=== PATIENT | female | born 1970 | race Hispanic/Latino ===

== ENCOUNTER 2018-07-07 07:51 | Inpatient (IN) | payer MEDICARE, BC ==
[2018-07-07 08:29] VITALS: BMI 21.9
--- NOTE | 2018-07-07 08:46 | ED PDOC ---
Arrival/HPI - General Chief Complaint: GI Problem Time Seen by Provider: 07/07/18 07:56 Historian: Patient - History of Present Illness Narrative History of Present Illness (Text): 07/07/18 08:43 47 year old female, whose past medical history includes rectal carcinoma with multiple surgeries including ileostomy and colostomy, sent to the emergency department by Dr. Hendrix complaining of persistent diarrhea for the past severa l days. Patient had a sigmoid dilation 1.5 weeks ago at another institution. Patient states 3 days ago she went to her oncologist for dehydration and received IV Fluids and one dose of Rocephin for UTI. Patient denies any documented temperature, chills, chest pain, shortness of breath, nausea, vomiting, back pain, neck pain, headache, dizziness, or any other complaints. Oncologist: Dr. Hendrix Time/Duration: Other (several days) Symptom Onset: Gradual Symptom Course: Unchanged Activities at Onset: Light Context: Home Past Medical History - Provider Review Nursing Documentation Reviewed: Yes - Infectious Disease Hx of Infectious Diseases: None - Cardiac Hx Cardiac Disorders: No Hx Pacemaker: No - Pulmonary Hx Respiratory Disorders: No - Neurological Hx Neurological Disorder: No Hx Paralysis: No - HEENT Hx HEENT Disorder: No - Renal Hx Renal Disorder: No - Endocrine/Metabolic Hx Endocrine Disorders: No - Hematological/Oncological Hx Blood Disorders: Yes Hx Blood Transfusions: Yes (06/04) - Integumentary Hx Dermatological Disorder: No Other/Comment: surgical scars and steri strips to suprapubic area, skin is reddened post colon sx - Musculoskeletal/Rheumatological Hx Musculoskeletal Disorders: No - Gastrointestinal Hx Gastrointestinal Disorders: Yes Hx Colostomy: Yes (ileostomy) Hx Ileostomy: Yes Other/Comment: colorectoal ca - Genitourinary/Gynecological Hx Genitourinary Disorders: No - Psychiatric Hx Psychophysiologic Disorder: Yes Hx Anxiety: Yes Hx Emotional Abuse: No Hx Physical Abuse: No Hx Substance Use: No - Surgical History Other/Comment: dx with colon ca had colon sx with ileostomy, reversal of ileostomy 06/2013, colostomy, 09/2013 colostomy loop not working properly, had 2 part sx 05/20/15 and 05/25/15 at [facility] to repair colostomy and rectum - Anesthesia Hx Anesthesia Reactions: No Hx Malignant Hyperthermia: No - Suicidal Assessment Feels Threatened In Home Enviroment: No Family/Social History - Physician Review Nursing Documentation Reviewed: Yes Family/Social History: No Known Family HX Smoking Status: Never Smoked Hx Alcohol Use: Yes (SOCIAL) Hx Substance Use: No Allergies/Home Meds Allergies/Adverse Reactions: Allergies No Known Allergies Allergy (Verified 07/07/18 08:20) Home Medications: Home Meds Medication Instructions Recorded Confirmed Loperamide HCl 2 mg PO PRN PRN 11/25/15 11/26/15 Pantoprazole [Protonix EC Tab] 40 mg PO QAM 11/25/15 11/26/15 levoFLOXacin [Levaquin] 500 mg PO DAILY 11/25/15 11/26/15 Review of Systems - Physician Review All systems were reviewed & negative as marked: Yes - Review of Systems Constitutional: absent: Fevers, Other (Chills) Respiratory: absent: SOB Cardiovascular: absent: Other Gastrointestinal: Diarrhea. absent: Nausea, Vomiting Musculoskeletal: absent: Back Pain, Neck Pain Neurological: absent: Headache, Dizziness Physical Exam Vital Signs Reviewed: Yes Vital Signs Temp Pulse Resp BP Pulse Ox 07/07/18 08:39 98.2 F 78 16 118/67 100 Temperature: Afebrile Blood Pressure: Normal Pulse: Regular Respiratory Rate: Normal Appearance: Positive for: Well-Appearing, Non-Toxic, Comfortable Pain Distress: None Mental Status: Positive for: Alert and Oriented X 3 - Systems Exam Head: Present: Atraumatic, Normocephalic Pupils: Present: PERRL Extroacular Muscles: Present: EOMI Conjunctiva: Present: Normal Mouth: Present: Dry Neck: Present: Normal Range of Motion Respiratory/Chest: Present: Clear to Auscultation, Good Air Exchange. No: Respiratory Distress, Accessory Muscle Use Cardiovascular: Present: Regular Rate and Rhythm, Normal S1, S2. No: Murmurs Abdomen: Present: Scars (Multiple well healed surgical scars), Other (Hyperactive bowel sounds). No: Tenderness, Distention, Peritoneal Signs Back: Present: Normal Inspection Upper Extremity: Present: Normal Inspection. No: Cyanosis, Edema Lower Extremity: Present: Normal Inspection. No: Edema Neurological: Present: GCS=15, CN II-XII Intact, Speech Normal Skin: Present: Warm, Dry, Normal Color. No: Rashes Psychiatric: Present: Alert, Oriented x 3, Normal Insight, Normal Concentration Medical Decision Making ED Course and Treatment: 07/07/18 08:44 Impression: 47 year old female presents complaining of persistent diarrhea for the past several days. Patient had a sigmoid dilation 1.5 weeks ago. Plan: -- CT Abd & Pelvis PO Contrast -- labs -- IV Fluids -- Blood Culture, Urine Culture -- POC Urine Test -- Urinalysis w/ micro -- Reassess and disposition Prior Visits: Notes and results from previous visits were reviewed. Progress Notes: 07/07/18 08:[address] Hendrix who is aware and recommends CT Abd & Pelvis PO Contrast to be done. Will call back when results come back for further plan. PROCEDURE: CT Abdomen and Pelvis without IV contrast. Dictator : Summer Ward MD Report Date : 07/07/2018 12:23:43 IMPRESSION: Indeterminate large prominent presacral soft tissue may be post treatment etiology however recurrence or residual tumor is not excluded. Collapse bowel loop has previously been seen in this region and small amount of high density as well as foci of air may in fact be intraluminal. Abscess is not excluded. Correlate clinically. Mild hydronephrosis/hydroureter bilaterally without obstructing calculus identified. Small hypodensity re-identified within the right hepatic lobe adjacent to the falciform ligament cyst; possibly focal fatty infiltration. Moderate diffuse constipation. 07/07/18 13:[address] Hendrix who is aware and agrees with the plan. Accepts patient into her service and Dr. Roth service. Request Dr. Pederson for GI consult and Roberto Wallace for Infectious Disease Consult. - Lab Interpretations I have reviewed the lab results: Yes - Scribe Statement The provider has reviewed the documentation as recorded by the Marilee Parra Provider Scribe Attestation: All medical record entries made by the Scribe were at my direction and personally dictated by me. I have reviewed the chart and agree that the record accurately reflects my personal performance of the history, physical exam, medical decision making, and the department course for this patient. I have also personally directed, reviewed, and agree with the discharge instructions and disposition. Disposition/Present on Arrival - Present on Arrival Any Indicators Present on Arrival: No History of DVT/PE: No History of Uncontrolled Diabetes: No Urinary Catheter: No History of Decub. Ulcer: No History Surgical Site Infection Following: None - Disposition Have Diagnosis and Disposition been Completed?: Yes Diagnosis: Diarrhea, Dehydration Disposition: HOSPITALIZED Disposition Time: 12:15 Condition: STABLE
[2018-07-07] MEDS ORDERED: Sodium Chloride 0.9% 1,000 ML IV STA (09:06)
[2018-07-07] MEDS ORDERED: Iohexol 240 (50 ml) ONE (09:22)
[2018-07-07 09:39] LABS: URINE APPEARANCE CLEAR (CLEAR); URINE BILIRUBIN NEGATIVE (NEGATIVE); URINE BLOOD LARGE (NEGATIVE); URINE COLOR YELLOW (YELLOW); URINE GLUCOSE (UA) NEGATIVE (NEGATIVE); URINE LEUKOCYTE ESTERASE LARGE Leu/uL (NEGATIVE); URINE PROTEIN NEGATIVE mg/dL (<30 mg/dL); URINE UROBILINOGEN 0.2 E.U./dL (<1 E.U./dL)
[2018-07-07 10:00] LABS: URINE RBC 0 - 2 /hpf (0-2)
[2018-07-07 10:01] LABS: URINE BACTERIA NEG (NEG)
[2018-07-07 10:03] LABS: BASO # 0.02 K/mm3 (0.0-2.0); BASO % 0.3 % (0.0-3.0); EOS # 0.1 (0.0-0.7); GRAN # 5.48 (1.4-6.5); GRAN % 75.1 % (50.0-68.0); HEMOGLOBIN 12.3 g/dL (12.0-16.0); LYMPH # 1.1 (1.2-3.4); LYMPH % 15.6 % (22.0-35.0); MEAN CELL VOLUME 91.7 fl (80.0-105.0); MEAN CORPUSCULAR HEMOGLOBIN 30.1 pg (25.0-35.0); MEAN CORPUSCULAR HGB CONC 32.8 g/dl (31.0-37.0); MEAN PLATELET VOLUME 9.3 fl (7.0-11.0); MONO # 0.6 (0.1-0.6); RBC 4.09 10^6/uL (3.5-6.1); RED CELL DISTRIBUTION WIDTH 13.2 % (11.5-14.5); WHITE BLOOD COUNT 7.3 10^3/uL (4.5-11.0)
[2018-07-07 10:08] LABS: INR 1.06; PARTIAL THROMBOPLASTIN TIME 31.6 Seconds (25.1-36.5); PROTHROMBIN TIME 12.2 SECONDS (9.4-12.5)
[2018-07-07 10:09] LABS: ALB/GLOB RATIO 1.2 (1.1-1.8); ALBUMIN 4.4 g/dL (3.0-4.8); ALT/SGPT 22 U/L (7-56); AMYLASE 68 U/L (35-125); AST/SGOT 22 U/L (14-36); BLOOD UREA NITROGEN 9 mg/dL (7-21); CALCIUM 9.2 mg/dL (8.4-10.5); GFR NON-AFRICAN AMERICAN > 60; LIPASE 65 U/L (23-300)
--- NOTE | 2018-07-07 12:27 | CT ---
PROCEDURE: CT Abdomen and Pelvis without IV contrast. HISTORY: diarrhea h/o multiple sx's. h/o rectal cancer COMPARISON: CT abdomen pelvis with contrast performed 06/18/15 TECHNIQUE: Contiguous axial images of the abdomen and pelvis. Oral contrast was administered. No IV contrast given. Coronal and Sagittal reformats generated and reviewed. Radiation dose: Total exam DLP = 646.4 mGy-cm. This CT exam was performed using one or more of the following dose reduction techniques: Automated exposure control, adjustment of the mA and/or kV according to patient size, and/or use of iterative reconstruction technique. FINDINGS: There is limited evaluation of the solid organs without the administration of IV contrast. LOWER THORAX: No visible consolidation, pleural effusion, or pneumothorax. Visualized portions of the heart appear within normal limits of size. LIVER: Small hypodensity re-identified within the right hepatic lobe adjacent to the falciform ligament. GALLBLADDER AND BILE DUCTS: Unremarkable unenhanced appearance. PANCREAS: Unremarkable unenhanced appearance. SPLEEN: Unremarkable unenhanced appearance. ADRENALS: Unremarkable unenhanced appearance. KIDNEYS AND URETERS: Mild hydronephrosis/hydroureter bilaterally. No obstructing calculi identified. BLADDER: The urinary bladder appears unremarkable. REPRODUCTIVE: Uterus is present. APPENDIX: The appendix appears within normal limits of caliber. No secondary signs of acute appendicitis. BOWEL: The stomach is nondistended. No evidence of bowel obstruction. Indeterminate large prominent presacral soft tissue may be post treatment etiology however recurrence or residual tumor is not excluded. The collapsed bowel loop has previously been seen in this region and small amount of high density in foci of air may in fact be intraluminal. Abscess not excluded. Correlate clinically. Moderate diffuse constipation. LYMPH NODES: No bulky lymphadenopathy identified. VASCULATURE: No aortic aneurysm. BONES: No acute osseous abnormality is detected. OTHER FINDINGS: None. IMPRESSION: Indeterminate large prominent presacral soft tissue may be post treatment etiology however recurrence or residual tumor is not excluded. Collapse bowel loop has previously been seen in this region and small amount of high density as well as foci of air may in fact be intraluminal. Abscess is not excluded. Correlate clinically. Mild hydronephrosis/hydroureter bilaterally without obstructing calculus identified. Small hypodensity re-identified within the right hepatic lobe adjacent to the falciform ligament cyst; possibly focal fatty infiltration. Moderate diffuse constipation.
[2018-07-07] MEDS ORDERED: cefTRIAXone 1 gm 1 GM/100 ML BAG IVPB STA (13:21)
[2018-07-07] MEDS: Dextrose 5%/0.9% NS 1,000 ML IV SCH (17:46)
[2018-07-07] MEDS: POLYETHYLENE GLYCOL 3350 17 GM/Dose PACKET PO SCH ×3 (17:47→23:59)
[2018-07-08] MEDS: POLYETHYLENE GLYCOL 3350 17 GM/Dose PACKET PO SCH ×3 (02:42→08:21)
[2018-07-08] MEDS: Dextrose 5%/0.9% NS 1,000 ML IV SCH (05:48)
--- NOTE | 2018-07-08 06:27 | HP ---
DATE OF EXAM: 07/07/2018 ONCOLOGY ADMISSION HISTORY AND PHYSICAL LOCATION: The patient is in room 371, admitted through the emergency room. HISTORY OF PRESENT ILLNESS: This is a 47-year-old white female with a long history of rectal carcinoma with neoadjuvant chemotherapy and radiation, following which she has had multiple surgeries including ileostomy, loop colostomy, again had reversal of colostomy with resultant residual stricture of the colon in the area of segment of the colon just above the at the level of the sigmoid colon on the left side which is being dilated periodically by Dr. Wayne Meek at [facility]. The patient had one procedure done recently about [id number] weeks ago at an outpatient facility and since then the patient has been symptomatic with one loose stool that is leaking out per rectum and the patient is incontinent. Along with this, the patient has had significant issues with irritation and dysuria and had been treated locally since the visit to [facility]. The patient was seen in local outpatient medical center x2 and had been treated with Cipro for possible urinary tract infection based on urinalysis. The patient was then seen by us in our office last week also with clinical dehydration, abdominal cramps, incontinent of stool, and at that time the patient was noted to be clinically dehydrated and was having low-grade temperature. In view of that, she had urinalysis, urine cultures, procalcitonin, and blood culture. Patient was given IV fluids, given one dose of IV Rocephin and then was told to keep in touch with us and since the patient was seen in the office over the last 24 hours, patient's condition worsened. She is complaining of mild diffuse lower abdominal cramps with constant incontinence with irritation of the vulvovaginal area as well and the patient was having increasing issues with this at home. She was having low-grade temperature without any significant nausea or vomiting and she was advised to go to the emergency room, but she is not improving. Patient had taken Imodium at night along with oxycodone to try to somewhat slow down her leakage of stool, but it was unsuccessful and the patient then decided to come over to the emergency room. She called me on the phone. I advised her to go to the emergency room and then have the ER physician call. In the meantime, I reached out to the surgeon at [facility] as well who agreed that it might to be a prudent thing to admit the patient, get a CAT scan of the abdomen and pelvis with oral contrast to check for any major issues. At the same time, if this thing did not resolve, get an MRI of the abdomen and MRI of the pelvis to look for further details. REVIEW OF SYSTEMS: Patient denies any temperature. She has been feeling chills. No chest pain. The patient is nauseous. Denies any significant vomiting. No back pain with this. No headaches. Patient's appetite has been decreased. Complains of dry mouth as well. PAST MEDICAL HISTORY AND SURGICAL HISTORY: The patient has had multiple surgeries after the neoadjuvant chemotherapy and radiation. She had initially concomitant resection of the tumor with an ileostomy and then the reversal was attempted. The patient had continuous leakage and based on this, the patient went on to have a loop colostomy. Subsequent to loop colostomy, the patient was having significant complaints to the leakage and incontinence of stool and eventually, the patient was seen at [facility], where she had primary anastomosis about [id number]-half years ago with intermittent dilatation of the strictured area of the colon that is being done on a periodic basis with one procedure being done just less than 10 days ago. 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 The patient also is concerned that she is developing fistula and I told her that it is unlikely and we will talk to the doctor and get appropriate imaging prior to her discharge during this admission. FAMILY HISTORY: Mother had colon cancer as well. HOME MEDICATIONS: Include loperamide as needed 2 mg, pantoprazole 40 mg daily, Levaquin 500 mg daily. PHYSICAL EXAMINATION: GENERAL: The patient is awake, alert, and oriented. VITAL SIGNS: T max is 98.2, pulse is 78, respirations 16, blood pressure 118/67, pulse ox is 100% on room air. Patient is afebrile. HEENT: Head is normocephalic, atraumatic. Conjunctivae pale. Sclerae anicteric. Pupils are equally reactive to light and accommodation. Tongue is dry, coated. No oropharyngeal lesions are noted. NECK: Supple. There is no adenopathy. LUNGS: Clear to percussion and auscultation. HEART: Reveals PMI to be in the fifth intercostal space inside the midclavicular line. S1, S2 are normal. No gallop or murmur is heard. ABDOMEN: Soft. Patient has multiple well-healed surgical scars. Abdomen is mildly protuberant, complaining of mid epigastric and periumbilical discomfort along with some suprapubic discomfort as well. No significant rebound is noted at this time. EXTREMITIES: Upper and lower extremities reveals no cyanosis, clubbing, or edema. BACK: Normal. There is no tenderness on percussion of the back, specifically the kidney angle . NEUROLOGIC: Reveals higher functions to be normal. No focal deficits are noted. SKIN: Turgor is decreased. No skin rashes are noted. PSYCHIATRIC: The patient has a normal affect and she is awake, alert, and oriented x3. ASSESSMENT NOTES AND PLAN: This is a 47-year-old female complaining of persistent loose bowel movements with incontinence in the presence of having had a procedure done recently. Patient is concerned about leakage of stool in and around her vaginal introitus raising the issue that the patient could have developed vesicovaginal or rectovaginal fistula which appears unlikely that has to be kept in the differential. Also, the possibility of a pelvic abscess post procedure has to be entertained as well. Plan, I have spoken in detail with Dr. Pederson who reviewed the CAT scan of the abdomen and pelvis with oral contrast done in the emergency room. I spoke to Dr. Meek at [facility] as well. Labs in the office were also reviewed with the patient and Dr. Pederson. Blood cultures that were done in the office have been negative for more than 48 hours. Urine was negative for growth, but urinalysis which showed significant white cells and red cells along with positive esterase suggestive of urinary tract infection. In the emergency room, procalcitonin and blood cultures have been drawn today. We will await for those results as well. A 47-year-old female with history of carcinoma of the rectum, presenting with progressive abdominal complaints, rule out evolving residual urinary tract infection, rule out evolving collection fluid, infection or pus in a patient who has post surgical dilatation with accumulation of presacral abnormalities, one would have to consider underlying infection as well. Plan is to get the patient to have an MRI of the abdomen and MRI of the pelvis with and without contrast. We will also have to check the patient for fistula for which she may need testing done on those lines as well. The CAT scan with oral contrast done today showed the patient has a lot of stool high up in the small intestine. For that reason alone, we are planning to give the patient at this point in time MiraLax 17 g every four hours at least for several doses until she has a good bowel movement. Hopefully, that will have the patient feel better as well. The patient empirically received one dose of Rocephin. Infectious Disease consultation has been obtained and we will then discuss further management from Infectious Disease and Gastroenterology point of view. Plan is as above. IV fluids and D5 normal saline at 100 mL an hour, IV antibiotics. Check for procalcitonin. Check for repeat blood cultures. Get ID on board along with evaluation by GI as well. I spoke to Dr. Meek at [facility] who said depending upon what the findings are on the MRI of the abdomen and pelvis, we might be probably transferring the patient to [facility] for further management if there should be a need for the same. Time spent with this patient is greater than 45 minutes, out of which more than 50% of the time was spent [id number] contact with the patient. Time is also for collating all the facts and then trying to discuss with the various attendings that are involved in her care and management. Pb Hendrix MD
[2018-07-08 06:32] LABS: BASO # 0.03 K/mm3 (0.0-2.0); BASO % 0.6 % (0.0-3.0); EOS # 0.1 (0.0-0.7); EOS % 2.4 % (1.5-5.0); GRAN # 3.81 (1.4-6.5); HEMOGLOBIN 11.7 g/dL (12.0-16.0); LYMPH # 0.9 (1.2-3.4); LYMPH % 16.9 % (22.0-35.0); MEAN CELL VOLUME 92.7 fl (80.0-105.0); MEAN CORPUSCULAR HEMOGLOBIN 29.4 pg (25.0-35.0); MEAN CORPUSCULAR HGB CONC 31.7 g/dl (31.0-37.0); MEAN PLATELET VOLUME 9.8 fl (7.0-11.0); MONO # 0.5 (0.1-0.6); MONO % 9.1 % (1.0-6.0); RBC 3.98 10^6/uL (3.5-6.1); RED CELL DISTRIBUTION WIDTH 13.4 % (11.5-14.5); WHITE BLOOD COUNT 5.4 10^3/uL (4.5-11.0)
[2018-07-08 06:59] LABS: ALB/GLOB RATIO 1.1 (1.1-1.8); ALBUMIN 4.2 g/dL (3.0-4.8); ALT/SGPT 18 U/L (7-56); AST/SGOT 36 U/L (14-36); BLOOD UREA NITROGEN 9 mg/dL (7-21); CALCIUM 8.5 mg/dL (8.4-10.5); GFR NON-AFRICAN AMERICAN > 60
[2018-07-08] MEDS: Piperacillin/Tazobact 3.375 gm 100 ML IVPB SCH ×3 (08:21→21:45)
--- NOTE | 2018-07-08 10:26 | CP.PCM.PN ---
<Diana Fierro - Last Filed: 07/08/18 10:19> Subjective - Date & Time of Evaluation Date of Evaluation: 07/08/18 Time of Evaluation: 07:00 - Subjective Subjective: GI Fellow PGY5 Progress Note Pt seen and evaluated at bedside, pt denies any abdominal pain or rectal bleeding. She has small leakage of watery stool from rectum which is continuos. Denies any fevers but reports chills and weakness/dehydration. ROS: A 12pt ROS was negative except as above. Objective - Vital Signs/Intake and Output Vital Signs (last 24 hours): Temp Pulse Resp BP Pulse Ox 97.5 F L 81 20 104/61 99 07/08/18 07:48 07/08/18 07:48 07/08/18 07:48 07/08/18 07:48 07/08/18 07:48 Intake and Output: 07/08/18 07/08/18 06:59 18:59 Intake Total 1920 Balance 1920 - Medications Medications: Current Medications Diphenhydramine HCl (Benadryl) 25 mg PO HS PRN PRN Reason: Insomnia Dextrose/Sodium Chloride (Dextrose 5%/0.9% Ns 1000 Ml) 1,000 mls @ 100 mls/hr IV .Q10H REINALDO Last Admin: 07/08/18 05:48 Dose: 100 mls/hr Piperacillin Sod/Tazobactam Sod (Zosyn 3.375 In Ns 100ml) 100 mls @ 25 mls/hr IVPB Q8 REINALDO; Protocol Stop: 07/15/18 07:16 Last Admin: 07/08/18 08:21 Dose: 25 mls/hr Lorazepam (Ativan) 0.5 mg PO HS REINALDO; Protocol Last Admin: 07/07/18 21:13 Dose: 0.5 mg Ondansetron HCl (Zofran Inj) 4 mg IVP Q6H PRN PRN Reason: Nausea/Vomiting Pantoprazole Sodium (Protonix Ec Tab) 40 mg PO 0600 [facility] - Labs Labs: 07/08/18 06:00 07/08/18 06:00 PT 12.2 SECONDS (9.4-12.5) 07/07/18 09:42 INR 1.06 07/07/18 09:42 APTT 31.6 Seconds (25.1-36.5) 07/07/18 09:42 - Constitutional Appears: Non-toxic, No Acute Distress - Head Exam Head Exam: ATRAUMATIC, NORMAL INSPECTION, NORMOCEPHALIC - Eye Exam Eye Exam: EOMI, Normal appearance, PERRL - ENT Exam ENT Exam: Mucous Membranes Moist - Respiratory Exam Respiratory Exam: Clear to Ausculation Bilateral, NORMAL BREATHING PATTERN - Cardiovascular Exam Cardiovascular Exam: REGULAR RHYTHM, RRR, +S1, +S2 - GI/Abdominal Exam GI & Abdominal Exam: Soft, Normal Bowel Sounds. absent: Tenderness Additional comments: surgical scars well healed - Extremities Exam Extremities Exam: Full ROM, Normal Inspection - Neurological Exam Neurological Exam: Alert, Awake, Oriented x3 - Psychiatric Exam Psychiatric exam: Normal Affect, Normal Mood - Skin Skin Exam: Dry, Intact, Normal Color, Warm Assessment and Plan - Assessment and Plan (Free Text) Assessment: This is a 47yF with a pmhx of rectal carcinoma in 2012 s/p chemoradiation, ileostomy, loop colostomy, reversal of colostomy with residual stricture above sigmoid colon requiring multiple dilations by Dr. Meek at [facility]. Pt with recent dilation last week presenting with increased stool leakage, constipation, and chills and weakness. Pt recently treated for UTI as an outpt last week with ciprofloxacin. 1. Constipation, overflow diarrhea causing stool leakage 2. r/o colonic abscess 3. UTI 4. Hx of rectal cancer s/p recent colon dilation Plan: -Continue supportive care -IVF hydration -Blood cx -Bowel regimen with miralax daily, primary ordered 6 doses -CT imaging with questionable abscess -MRI abd ordered to r/o abscess -IV abx per ID -If MRI positive for abscess will benefit from transfer to private GI team at [facility] -Will continue to follow and make further recommendations <Nessa Pederson V - Last Filed: 07/08/18 23:43> Objective - Vital Signs/Intake and Output Vital Signs (last 24 hours): Temp Pulse Resp BP Pulse Ox 98.6 F 88 20 129/88 98 07/08/18 17:17 07/08/18 17:17 07/08/18 17:17 07/08/18 17:17 07/08/18 17:17 Intake and Output: 07/08/18 07/09/18 18:59 06:59 Intake Total 2400 Balance 2400 - Medications Medications: Current Medications Diphenhydramine HCl (Benadryl) 25 mg PO HS PRN PRN Reason: Insomnia Last Admin: 07/08/18 21:53 Dose: 25 mg Dextrose/Sodium Chloride (Dextrose 5%/0.9% Ns 1000 Ml) 1,000 mls @ 100 mls/hr IV .Q10H REINALDO Last Admin: 07/08/18 05:48 Dose: 100 mls/hr Piperacillin Sod/Tazobactam Sod (Zosyn 3.375 In Ns 100ml) 100 mls @ 25 mls/hr IVPB Q8 REINALDO; Protocol Stop: 07/15/18 07:16 Last Admin: 07/08/18 21:45 Dose: 25 mls/hr Lorazepam (Ativan) 0.5 mg PO HS REINALDO; Protocol Last Admin: 07/08/18 21:44 Dose: 0.5 mg Ondansetron HCl (Zofran Inj) 4 mg IVP Q6H PRN PRN Reason: Nausea/Vomiting Last Admin: 07/08/18 16:19 Dose: 4 mg Pantoprazole Sodium (Protonix Ec Tab) 40 mg PO 0600 [facility] - Labs Labs: 07/08/18 06:00 07/08/18 06:00 PT 12.2 SECONDS (9.4-12.5) 07/07/18 09:42 INR 1.06 07/07/18 09:42 APTT 31.6 Seconds (25.1-36.5) 07/07/18 09:42 Attending/Attestation - Attestation I have personally seen and examined this patient.: Yes I have fully participated in the care of the patient.: Yes I have reviewed all pertinent clinical information, including history, physical exam and plan: Yes Notes (Text): This is an addendum to GI progress report dictated by the GI Fellow.The patient was seen and examined earlier. Medical records, lab studies, imagings were reviewed. Last 24 hours events reviewed. Agreed with the above treatment plan as outlined in GI Fellow 's notes with the addition of the following 07/08/18 23:43
--- NOTE | 2018-07-08 10:52 | CP.PCM.CON ---
History of Present Illness - History of Present Illness History of Present Illness: 47 year old female with PMH of rectal cancer S/P multiple surgeries in different institutions (as per patient 2012, 2014) including ileostomy and colostomy was sent in by Dr. Hendrix because of loose bowel movements as well as constipation for the past several days. The patient apparently had sigmoid dilatation procedure more than a week ago in another facility. She was seen by Dr. Hendrix about 3-4 days ago in the office and was seen to be dehydrated and with possible UTI and was given IV fluids and Rocephin. The patient is still having abdominal discomfort and over the past day the patient was having constipation. She was given Miralax on this admission and is having LBM but this morning has not moved her bowels. She has some abdominal discomfort, no nausea or vomiting, no fever or chills, no headache or dizziness, no chest pain, no SOB, no cough or colds. CT A/P is equivocal about fluid in the abdominal area. MRI has been ordered. Infectious diseases consult is requested to further evaluate and manage. Review of Systems - Review of Systems All systems: reviewed and no additional remarkable complaints except (as per HPI) Past Patient History - Infectious Disease Hx of Infectious Diseases: None - Past Social History Smoking Status: Never Smoked - CARDIAC Hx Cardiac Disorders: No Hx Pacemaker: No - PULMONARY Hx Respiratory Disorders: No - NEUROLOGICAL Hx Neurological Disorder: No Hx Paralysis: No - HEENT Hx HEENT Problems: No - RENAL Hx Chronic Kidney Disease: No - ENDOCRINE/METABOLIC Hx Endocrine Disorders: No - HEMATOLOGICAL/ONCOLOGICAL Hx Blood Disorders: Yes Hx Blood Transfusions: Yes (06/04) - INTEGUMENTARY Hx Dermatological Problems: No Other/Comment: surgical scars and steri strips to suprapubic area, skin is reddened post colon sx - MUSCULOSKELETAL/RHEUMATOLOGICAL Hx Musculoskeletal Disorders: No - GASTROINTESTINAL Hx Gastrointestinal Disorders: Yes Hx Colostomy: Yes (ileostomy) Hx Ileostomy: Yes Other/Comment: colorectoal ca - GENITOURINARY/GYNECOLOGICAL Hx Genitourinary Disorders: No - PSYCHIATRIC Hx Psychophysiologic Disorder: Yes Hx Anxiety: Yes Hx Emotional Abuse: No Hx Physical Abuse: No Hx Substance Use: No - SURGICAL HISTORY Other/Comment: dx with colon ca had colon sx with ileostomy, reversal of ileostomy 06/2013, colostomy, 09/2013 colostomy loop not working properly, had 2 part sx 05/20/15 and 05/25/15 at [facility] to repair colostomy and rectum - ANESTHESIA Hx Anesthesia Reactions: No Hx Malignant Hyperthermia: No Meds Allergies/Adverse Reactions: Allergies Allergy/AdvReac Type Severity Reaction Status Date / Time No Known Allergies Allergy Verified 07/07/18 08:20 - Medications Medications: Current Medications Diphenhydramine HCl (Benadryl) 25 mg PO HS PRN PRN Reason: Insomnia Dextrose/Sodium Chloride (Dextrose 5%/0.9% Ns 1000 Ml) 1,000 mls @ 100 mls/hr IV .Q10H [facility]DO Last Admin: 07/08/18 05:48 Dose: 100 mls/hr Piperacillin Sod/Tazobactam Sod (Zosyn 3.375 In Ns 100ml) 100 mls @ 25 mls/hr IVPB Q8 [facility]DO; Protocol Stop: 07/15/18 07:16 Lorazepam (Ativan) 0.5 mg PO HS REINALDO; Protocol Last Admin: 07/07/18 21:13 Dose: 0.5 mg Ondansetron HCl (Zofran Inj) 4 mg IVP Q6H PRN PRN Reason: Nausea/Vomiting Polyethylene Glycol (Miralax) 17 gm PO Q3H REINALDO Stop: 07/08/18 07:46 Last Admin: 07/08/18 05:48 Dose: 17 gm Physical Exam - Constitutional Appears: Non-toxic, No Acute Distress, Chronically Ill - Head Exam Head Exam: NORMAL INSPECTION - Neck Exam Neck exam: Negative for: Meningismus - Respiratory Exam Respiratory Exam: Decreased Breath Sounds - Cardiovascular Exam Cardiovascular Exam: +S1, +S2 - GI/Abdominal Exam GI & Abdominal Exam: Soft. absent: Tenderness Results - Vital Signs Recent Vital Signs: Last Vital Signs Temp 98.1 F 07/07/18 17:14 Pulse 71 07/07/18 17:14 Resp 16 07/07/18 17:14 BP 110/70 07/07/18 17:14 Pulse Ox 97 07/07/18 17:14 - Labs Result Diagrams: 07/08/18 06:00 07/08/18 06:00 Labs: Laboratory Results - last 24 hr 07/07/18 07/07/18 07/07/18 09:15 09:42 09:42 WBC 7.3 RBC 4.09 Hgb 12.3 Hct 37.5 MCV 91.7 MCH 30.1 MCHC 32.8 RDW 13.2 Plt Count 329 MPV 9.3 Gran % 75.1 H Lymph % (Auto) 15.6 L [place] % (Auto) 8.0 H Eos % (Auto) 1.0 L Baso % (Auto) 0.3 Gran # 5.48 Lymph # (Auto) 1.1 L [place] # (Auto) 0.6 Eos # (Auto) 0.1 Baso # (Auto) 0.02 PT 12.2 INR 1.06 APTT 31.6 Sodium Potassium Chloride Carbon Dioxide Anion Gap BUN Creatinine Est GFR ( Amer) Est GFR (Non-Af Amer) Random Glucose Calcium Magnesium Total Bilirubin AST ALT Alkaline Phosphatase Total Protein Albumin Globulin Albumin/Globulin Ratio Amylase Lipase Procalcitonin Urine Color Yellow Urine Appearance Clear Urine pH 7.0 Ur Specific [place] <= 1.005 Urine Protein Negative Urine Glucose (UA) Negative Urine Ketones Negative Urine Blood Large H Urine Nitrate Negative Urine Bilirubin Negative Urine Urobilinogen 0.2 Ur Leukocyte Esterase Large H Urine RBC 0 - 2 Urine WBC 1 - 3 Ur Epithelial Cells 1 - 3 Urine Bacteria Neg 07/07/18 07/07/18 07/08/18 09:42 09:42 06:00 WBC 5.4 D RBC 3.98 Hgb 11.7 L Hct 36.9 MCV 92.7 MCH 29.4 MCHC 31.7 RDW 13.4 Plt Count 310 MPV 9.8 Gran % 71.0 H Lymph % (Auto) 16.9 L [place] % (Auto) 9.1 H Eos % (Auto) 2.4 Baso % (Auto) 0.6 Gran # 3.81 Lymph # (Auto) 0.9 L [place] # (Auto) 0.5 Eos # (Auto) 0.1 Baso # (Auto) 0.03 PT INR APTT Sodium 140 Potassium 3.9 Chloride 103 Carbon Dioxide 26 Anion Gap 15 BUN 9 Creatinine 0.7 Est GFR ( Amer) > 60 Est GFR (Non-Af Amer) > 60 Random Glucose 92 Calcium 9.2 Magnesium 2.2 Total Bilirubin 0.4 AST 22 ALT 22 Alkaline Phosphatase 63 Total Protein 8.1 Albumin 4.4 Globulin 3.7 Albumin/Globulin Ratio 1.2 Amylase 68 Lipase 65 Procalcitonin < 0.05 L Urine Color Urine Appearance Urine pH Ur Specific [place] Urine Protein Urine Glucose (UA) Urine Ketones Urine Blood Urine Nitrate Urine Bilirubin Urine Urobilinogen Ur Leukocyte Esterase Urine RBC Urine WBC Ur Epithelial Cells Urine Bacteria 07/08/18 06:00 WBC RBC Hgb Hct MCV MCH MCHC RDW Plt Count MPV Gran % Lymph % (Auto) [place] % (Auto) Eos % (Auto) Baso % (Auto) Gran # Lymph # (Auto) [place] # (Auto) Eos # (Auto) Baso # (Auto) PT INR APTT Sodium 139 Potassium 4.1 Chloride 106 Carbon Dioxide 23 Anion Gap 14 BUN 9 Creatinine 0.7 Est GFR ( Amer) > 60 Est GFR (Non-Af Amer) > 60 Random Glucose 97 Calcium 8.5 Magnesium Total Bilirubin 0.8 AST 36 D ALT 18 Alkaline Phosphatase 51 Total Protein 8.2 Albumin 4.2 Globulin 3.9 Albumin/Globulin Ratio 1.1 Amylase Lipase Procalcitonin Urine Color Urine Appearance Urine pH Ur Specific [place] Urine Protein Urine Glucose (UA) Urine Ketones Urine Blood Urine Nitrate Urine Bilirubin Urine Urobilinogen Ur Leukocyte Esterase Urine RBC Urine WBC Ur Epithelial Cells Urine Bacteria Assessment & Plan - Assessment and Plan (Free Text) Plan: Assessment R/O intra-abdominal infection, R/O intra-abdominal abscess rectal cancer S/P multiple surgeries in different institutions (as per patient 2012, 2014) including ileostomy and colostomy Plan Patient has been started on Zosyn pending MRI of abdomen; reviewed CT A/P and it is equivocal regarding abdominal abscess- discussed with Dr. Pederson and we are awaiting MRI abdomen; also awaiting blood cx will monitor clinically
[2018-07-08] MEDS ORDERED: Gadodiamide 287 MG/ML VIAL (20ML) IV ONE (18:07)
--- NOTE | 2018-07-09 03:52 | PN ---
DATE: 07/08/2018 ONCOLOGY PROGRESS NOTE LOCATION: The patient is in room 371, bed 1. SUBJECTIVE: The patient is seen and evaluated at bedside. Denies any significant abdominal pain or rectal bleeding. The patient is having small leakage of watery stool from the rectum which is continuous. The patient has taken several doses of MiraLax so far. Denies any fever, but reports chills, weakness, and dehydration. REVIEW OF SYSTEMS: Twelve-system review of systems is negative expect for what is mentioned in the subjective complaints. OBJECTIVE: GENERAL: The patient is being examined in bed. She just came back from the bathroom. LUNGS: Clear to percussion and auscultation. CARDIOVASCULAR SYSTEM: Reveals PMI to be in the fifth intercostal space inside the midclavicular line. S1 and S2 are normal. No gallop or murmur is heard. ABDOMEN: Mildly distended with hyperactive bowel sounds. The patient has marked tenderness in the periumbilical area and in the suprapubic area. Some tenderness on the right side of the abdomen, closer towards the right lower quadrant. No rebound rigidity or guarding is noted. EXTREMITIES: Unremarkable. No cyanosis or clubbing are noted. NEUROLOGIC: Reveals higher functions to be normal. No focal deficits are noted. SKIN: Skin turgor is decreased. No skin lesions are noted. LABORATORY DATA: From today: White count of 5.4, hemoglobin 11.7, hematocrit 36.8, and platelet count of . Sodium is 139, potassium is 4.1, chloride is 106, CO2 is 23, BUN is 9, creatinine 0.7, and blood sugar is 97. MEDICATIONS: The patient is on the following medicines. She is on IV fluids, D5 normal saline 100 mL an hour. She is on Benadryl 25 p.o. at bedtime p.r.n. for insomnia. She is on Zosyn 3.375 g every 8 hours for infection. She is on lorazepam also 0.5 mg p.o. at bedtime for sleep, Zofran 4 mg IV every 6 hours p.r.n., and pantoprazole 40 mg p.o. once daily. ASSESSMENT, NOTES, AND PLAN: This is a 47-year-old female with past medical history of rectal carcinoma in 2012, status post chemoradiation, ileostomy, loop colostomy, reversal of colostomy with residual stricture above the sigmoid colon, requiring multiple dilatations with Dr. Ospina at [facility]. The patient recently had dilatation done about 10 days ago, is now presenting with increasing stool leakage, constipation, chills, and weakness. The patient was treated recently for urinary tract infection as an outpatient with Cipro and one dose of Rocephin. Now, he is admitted with progressive abdominal discomfort, dehydration, and clinically concerns for probably post-dilatation complications such as possible evolving pelvic infection, for which the patient was admitted for further evaluation. The patient had a CAT scan of the abdomen and pelvis done, which showed lot of stool in the small intestine and in the colon, but in addition to that, there was presacral area changes with density that could be consistent with other post treatment findings or postoperative collection. Continuing management aggressively with the here at our hospital. I have discussed in detail with the patient. I spoke to Dr. Pederson who worked and reviewed the x-rays with me. The MRI also will be pending as it is not yet being done today. Time spent with the patient is greater than 45 minutes. Please make a note this is a complex patient with multiple comorbid medical issues, requiring collection of lot of information, and presenting this to the patient as well. Blood work for tomorrow has been requested. Pb Hendrix MD
[2018-07-09] MEDS: Piperacillin/Tazobact 3.375 gm 100 ML IVPB SCH ×3 (05:33→21:35)
[2018-07-09] MEDS: Pantoprazole 40 mg EC Tab PO SCH (05:33)
[2018-07-09 07:10] LABS: BASO # 0.03 K/mm3 (0.0-2.0); BASO % 0.6 % (0.0-3.0); EOS # 0.1 (0.0-0.7); EOS % 2.1 % (1.5-5.0); GRAN # 3.22 (1.4-6.5); GRAN % 66.5 % (50.0-68.0); HEMOGLOBIN 11.6 g/dL (12.0-16.0); LYMPH % 20.9 % (22.0-35.0); MEAN CELL VOLUME 93.5 fl (80.0-105.0); MEAN CORPUSCULAR HEMOGLOBIN 29.2 pg (25.0-35.0); MEAN CORPUSCULAR HGB CONC 31.3 g/dl (31.0-37.0); MEAN PLATELET VOLUME 9.9 fl (7.0-11.0); MONO # 0.5 (0.1-0.6); MONO % 9.9 % (1.0-6.0); RBC 3.97 10^6/uL (3.5-6.1); RED CELL DISTRIBUTION WIDTH 13.6 % (11.5-14.5); WHITE BLOOD COUNT 4.8 10^3/uL (4.5-11.0)
[2018-07-09 07:21] LABS: ALB/GLOB RATIO 1.2 (1.1-1.8); ALT/SGPT 22 U/L (7-56); AST/SGOT 26 U/L (14-36); BLOOD UREA NITROGEN 5 mg/dL (7-21); CALCIUM 8.8 mg/dL (8.4-10.5); GFR NON-AFRICAN AMERICAN > 60
--- NOTE | 2018-07-09 07:31 | CP.PCM.PN ---
Subjective - Date & Time of Evaluation Date of Evaluation: 07/09/18 Time of Evaluation: 12:30 - Subjective Subjective: Jordan Arias-Internal Medicine Resident- Hematology Oncology Progress Note Subjective: Patient seen and examined at bedside. No acute events overnight. States she feels bloating after eating. Admits to loose stools. Denies abdominal pain, nausea, vomiting. Further denies fever, chills, chest pain, SOB. 12 point ROS negative except as indicated in HPI Physical Examination: - Constitutional Appears: Non-toxic, No Acute Distress - Head Exam Head Exam: ATRAUMATIC, NORMOCEPHALIC - Eye Exam Eye Exam: EOMI, PERRL. absent: Scleral icterus - ENT Exam ENT Exam: Mucous Membranes Moist, Normal Oropharynx - Neck Exam Neck Exam: Full ROM, Normal Inspection - Respiratory Exam Respiratory Exam: Clear to Ausculation Bilateral. absent: Rales, Rhonchi, Wheezes - Cardiovascular Exam Cardiovascular Exam: RRR, +S1, +S2. absent: Gallop, Rubs - GI/Abdominal Exam GI & Abdominal Exam: Soft, Normal Bowel Sounds. absent: Distended, Firm, Guarding, Rigid, Tenderness, Organomegaly, Rebound - Extremities Exam Extremities Exam: Normal Inspection. absent: Pedal Edema - Neurological Exam Neurological Exam: Alert, Awake - Psychiatric Exam Psychiatric exam: Normal Affect, Normal Mood - Skin Skin Exam: Dry, Intact, Normal Color, Warm Assessment and Plan: Patient is a 47year old female with a PMHx of rectal carcinoma 2013 s/p chemoradiation, ileostomy, loop colostomy with reversal complicated by residual sigmoid stricture requiring multiple dilations (Dr. Meek at [facility]) who was admitted for evaluation and treatment of stool leakage and constipation. Constipation - 07/08/2018- Pelvis MRI pelvis with and without contrast-Postoperative changes in the presacral space. No evidence of abscess - 07/07/2018- Abdomen MRI Negative study - continue bowel regimen - diet advanced to regular soft - GI consulted- appreciate recommendations Bilateral Hydronephrosis - urology consulted- appreciate recommendations Positive UA - blood cultures- no growth to date - follow up ID recommendations- continue IV zoysn Patient case discussed with and plan approved by attending physician, Dr. Hendrix. Objective - Vital Signs/Intake and Output Vital Signs (last 24 hours): Temp Pulse Resp BP Pulse Ox 98.6 F 88 20 129/88 98 07/08/18 17:17 07/08/18 17:17 07/08/18 17:17 07/08/18 17:17 07/08/18 17:17 - Medications Medications: Current Medications Diphenhydramine HCl (Benadryl) 25 mg PO HS PRN PRN Reason: Insomnia Last Admin: 07/08/18 21:53 Dose: 25 mg Dextrose/Sodium Chloride (Dextrose 5%/0.9% Ns 1000 Ml) 1,000 mls @ 100 mls/hr IV .Q10H REINALDO Last Admin: 07/08/18 05:48 Dose: 100 mls/hr Piperacillin Sod/Tazobactam Sod (Zosyn 3.375 In Ns 100ml) 100 mls @ 25 mls/hr IVPB Q8 REINALDO; Protocol Stop: 07/15/18 07:16 Last Admin: 07/09/18 05:33 Dose: 25 mls/hr Lorazepam (Ativan) 0.5 mg PO HS REINALDO; Protocol Last Admin: 07/08/18 21:44 Dose: 0.5 mg Ondansetron HCl (Zofran Inj) 4 mg IVP Q6H PRN PRN Reason: Nausea/Vomiting Last Admin: 07/08/18 16:19 Dose: 4 mg Pantoprazole Sodium (Protonix Ec Tab) 40 mg PO 0600 REINALDO Last Admin: 07/09/18 05:33 Dose: 40 mg - Labs Labs: 07/09/18 05:30 07/09/18 05:30 PT 12.2 SECONDS (9.4-12.5) 07/07/18 09:42 INR 1.06 07/07/18 09:42 APTT 31.6 Seconds (25.1-36.5) 07/07/18 09:42
--- NOTE | 2018-07-09 10:20 | MRI ---
Date of service: 07/08/2018 PROCEDURE: MRI Abdomen with and without contrast HISTORY: Rule out pelvic abscess COMPARISON: None available. TECHNIQUE: Multisequence, multiplanar MR images of the abdomen with and without gadolinium contrast enhancement. 20 cc of Omniscan FINDINGS: LIVER: Unremarkable. GALLBLADDER: Unremarkable. SPLEEN: Unremarkable. PANCREAS: Unremarkable. ADRENALS: Unremarkable. KIDNEYS: Unremarkable. AORTA: No aneurysm. ASCITES: None. PERITONEUM: Unremarkable. LYMPH NODES: Unremarkable. OTHER FINDINGS: None. IMPRESSION: Negative study
--- NOTE | 2018-07-09 10:36 | MRI ---
Date of service: 07/08/2018 PROCEDURE: MRI of the pelvis with and without contrast HISTORY: r/o pelvic abcess COMPARISON: CT 07/07/2018 TECHNIQUE: MRI of the pelvis was performed in multiple planes using multiple pulse sequences. 20 cc of Omniscan were injected. FINDINGS: Postoperative changes are seen in the presacral space. The findings are actually better demonstrated on CT. There is no evidence of a fluid collection to suggest abscess. There is no adenopathy. There is no evidence of bony metastatic disease in the pelvis or lower lumbar spine.. IMPRESSION: Postoperative changes in the presacral space. No evidence of abscess.
--- NOTE | 2018-07-09 12:35 | CP.PCM.PN ---
Subjective - Date & Time of Evaluation Date of Evaluation: 07/09/18 Time of Evaluation: 09:20 - Subjective Subjective: Has some loose stools but not watery, no abdominal pain, no fevers. Objective - Vital Signs/Intake and Output Vital Signs (last 24 hours): Temp Pulse Resp BP Pulse Ox 97.5 F L 81 20 104/61 99 07/08/18 07:48 07/08/18 07:48 07/08/18 07:48 07/08/18 07:48 07/08/18 07:48 Intake and Output: 07/08/18 07/08/18 06:59 18:59 Intake Total 1920 Balance 1920 - Medications Medications: Current Medications Diphenhydramine HCl (Benadryl) 25 mg PO HS PRN PRN Reason: Insomnia Dextrose/Sodium Chloride (Dextrose 5%/0.9% Ns 1000 Ml) 1,000 mls @ 100 mls/hr IV .Q10H REINALDO Last Admin: 07/08/18 05:48 Dose: 100 mls/hr Piperacillin Sod/Tazobactam Sod (Zosyn 3.375 In Ns 100ml) 100 mls @ 25 mls/hr IVPB Q8 [facility]; Protocol Stop: 07/15/18 07:16 Last Admin: 07/08/18 08:21 Dose: 25 mls/hr Lorazepam (Ativan) 0.5 mg PO HS REINALDO; Protocol Last Admin: 07/07/18 21:13 Dose: 0.5 mg Ondansetron HCl (Zofran Inj) 4 mg IVP Q6H PRN PRN Reason: Nausea/Vomiting Pantoprazole Sodium (Protonix Ec Tab) 40 mg PO 0600 [facility] - Labs Labs: 07/08/18 06:00 07/08/18 06:00 PT 12.2 SECONDS (9.4-12.5) 07/07/18 09:42 INR 1.06 07/07/18 09:42 APTT 31.6 Seconds (25.1-36.5) 07/07/18 09:42 - Constitutional Appears: Chronically Ill - Head Exam Head Exam: NORMAL INSPECTION - Respiratory Exam Respiratory Exam: Decreased Breath Sounds - Cardiovascular Exam Cardiovascular Exam: +S1, +S2 - GI/Abdominal Exam GI & Abdominal Exam: Soft. absent: Tenderness Assessment and Plan - Assessment and Plan (Free Text) Plan: Assessment R/O intra-abdominal infection, R/O intra-abdominal abscess rectal cancer S/P multiple surgeries in different institutions (as per patient 2012, 2014) including ileostomy and colostomy Plan continue Zosyn pending MRI of abdomen; reviewed CT A/P and it is equivocal regarding abdominal abscess- discussed with Dr. Pederson and we are awaiting MRI abdomen; blood cx are negative urine cx showing gram negative bacilli but patient does not have urinary symptoms
[2018-07-09] MEDS: Dextrose 5%/0.9% NS 1,000 ML IV SCH (13:44)
--- NOTE | 2018-07-09 14:23 | CP.PCM.PN ---
Subjective - Date & Time of Evaluation Date of Evaluation: 07/09/18 Time of Evaluation: 14:18 - Subjective Subjective: Gastroenterology Fellow PGY6 Progress Note Patient notes continued watery stools with intermittent incontinence. Tolerating liquid diet. A 12-point review of systems negative except for as above. Objective - Vital Signs/Intake and Output Vital Signs (last 24 hours): Temp Pulse Resp BP Pulse Ox 98.1 F 80 20 118/81 99 07/09/18 08:34 07/09/18 08:34 07/09/18 08:34 07/09/18 08:34 07/09/18 08:34 - Medications Medications: Current Medications Diphenhydramine HCl (Benadryl) 25 mg PO HS PRN PRN Reason: Insomnia Last Admin: 07/08/18 21:53 Dose: 25 mg Dextrose/Sodium Chloride (Dextrose 5%/0.9% Ns 1000 Ml) 1,000 mls @ 100 mls/hr IV .Q10H REINALDO Last Admin: 07/09/18 13:44 Dose: 100 mls/hr Piperacillin Sod/Tazobactam Sod (Zosyn 3.375 In Ns 100ml) 100 mls @ 25 mls/hr IVPB Q8 REINALDO; Protocol Stop: 07/15/18 07:16 Last Admin: 07/09/18 13:40 Dose: 25 mls/hr Lorazepam (Ativan) 0.5 mg PO HS REINALDO; Protocol Last Admin: 07/08/18 21:44 Dose: 0.5 mg Ondansetron HCl (Zofran Inj) 4 mg IVP Q6H PRN PRN Reason: Nausea/Vomiting Last Admin: 07/08/18 16:19 Dose: 4 mg Pantoprazole Sodium (Protonix Ec Tab) 40 mg PO 0600 REINALDO Last Admin: 07/09/18 05:33 Dose: 40 mg - Labs Labs: 07/09/18 05:30 07/09/18 05:30 PT 12.2 SECONDS (9.4-12.5) 07/07/18 09:42 INR 1.06 07/07/18 09:42 APTT 31.6 Seconds (25.1-36.5) 07/07/18 09:42 - Constitutional Appears: Non-toxic, No Acute Distress - Head Exam Head Exam: ATRAUMATIC, NORMOCEPHALIC - Eye Exam Eye Exam: EOMI, PERRL. absent: Scleral icterus Pupil Exam: PERRL. absent: Miosis, Mydriatic - ENT Exam ENT Exam: Mucous Membranes Moist, Normal Oropharynx - Neck Exam Neck Exam: Full ROM, Normal Inspection - Respiratory Exam Respiratory Exam: Clear to Ausculation Bilateral. absent: Rales, Rhonchi, Wheezes - Cardiovascular Exam Cardiovascular Exam: RRR, +S1, +S2. absent: Gallop, Rubs - GI/Abdominal Exam GI & Abdominal Exam: Soft, Normal Bowel Sounds. absent: Distended, Firm, Guarding, Rigid, Tenderness, Organomegaly, Rebound - Extremities Exam Extremities Exam: Normal Inspection. absent: Pedal Edema - Neurological Exam Neurological Exam: Alert, Awake - Psychiatric Exam Psychiatric exam: Normal Affect, Normal Mood - Skin Skin Exam: Dry, Intact, Normal Color, Warm Assessment and Plan - Assessment and Plan (Free Text) Assessment: 47year old female with PMH of rectal carcinoma 2013 s/p chemoradiation, ileostomy, loop colostomy with reversal complicated by with residual sigmoid stricture requiring multiple dilations (Dr. Meek at [facility]) pr esenting with increased stool leakage and constipation. Active treatment of constipation with overflow diarrhea in setting of recent dilation one week ago. Plan: -MRI A/P- no abscess collection -continue bowel regimen -advance diet as tolerated -blood cultures- no growth to date -follow up ID recommendations -counselled patient on outpatient follow up at [facility]
[2018-07-10] MEDS: Pantoprazole 40 mg EC Tab PO SCH (05:23)
[2018-07-10] MEDS: Piperacillin/Tazobact 3.375 gm 100 ML IVPB SCH ×2 (05:24→16:54)
--- NOTE | 2018-07-10 09:10 | CP.PCM.PN ---
Subjective - Date & Time of Evaluation Date of Evaluation: 07/10/18 Time of Evaluation: 10:00 - Subjective Subjective: Jordan Arias-Internal Medicine Resident- Hematology Oncology Progress Note Subjective: Patient seen and examined at bedside. No acute events overnight. Admits to loose stools. Denies abdominal pain, nausea, vomiting. Further denies fever, chills, chest pain, SOB. 12 point ROS negative except as indicated in HPI Physical Examination: - Constitutional Appears: Non-toxic, No Acute Distress - Head Exam Head Exam: ATRAUMATIC, NORMOCEPHALIC - Eye Exam Eye Exam: EOMI, PERRL. absent: Scleral icterus - ENT Exam ENT Exam: Mucous Membranes Moist, Normal Oropharynx - Neck Exam Neck Exam: Full ROM, Normal Inspection - Respiratory Exam Respiratory Exam: Clear to Ausculation Bilateral. absent: Rales, Rhonchi, Wheezes - Cardiovascular Exam Cardiovascular Exam: RRR, +S1, +S2. absent: Gallop, Rubs - GI/Abdominal Exam GI & Abdominal Exam: Soft, Normal Bowel Sounds. absent: Distended, Firm, Guarding, Rigid, Tenderness, Organomegaly, Rebound - Extremities Exam Extremities Exam: Normal Inspection. absent: Pedal Edema - Neurological Exam Neurological Exam: Alert, Awake - Psychiatric Exam Psychiatric exam: Normal Affect, Normal Mood - Skin Skin Exam: Dry, Intact, Normal Color, Warm Assessment and Plan: Patient is a 47year old female with a PMHx of rectal carcinoma 2013 s/p chemoradiation, ileostomy, loop colostomy with reversal complicated by residual sigmoid stricture requiring multiple dilations (Dr. Meek at [facility]) who was admitted for evaluation and treatment of stool leakage and constipation. Constipation - 07/07/2018 CT Abdomen and Pelvis without IV contrast- Indeterminate large prominent presacral soft tissue may be post treatment etiology however recurrence or residual tumor is not excluded. Collapse bowel loop has previously been seen in this region and small amount of high density as well as foci of air may in fact be intraluminal. Abscess is not excluded. Correlate clinically. Mild hydronephrosis/hydroureter bilaterally without obstructing calculus identified. Small hypodensity re-identified within the right hepatic lobe adjacent to the falciform ligament cyst; possibly focal fatty infiltration. Moderate diffuse constipation. - 07/08/2018- Pelvis MRI pelvis with and without contrast-Postoperative changes in the presacral space. No evidence of abscess - 07/07/2018- Abdomen MRI Negative study - Continue bowel regimen - Diet advanced to regular soft - GI consulted- appreciate recommendations Bilateral Hydronephrosis - urology consulted- appreciate recommendations- post void renal ultrasound or dered and pending Positive UA - blood cultures- no growth to date - follow up ID recommendations- continue IV zoysn - ESBL on UC- likley contaminate- straight cath with repeat UA and UC Patient case discussed with and plan approved by attending physician, Dr. Hendrix. Objective - Vital Signs/Intake and Output Vital Signs (last 24 hours): Temp Pulse Resp BP Pulse Ox 98.5 F 84 19 103/66 98 07/10/18 08:30 07/10/18 08:30 07/10/18 08:30 07/10/18 08:30 07/10/18 08:30 Intake and Output: 07/10/18 07/10/18 06:59 18:59 Intake Total 1320 Balance 1320 - Medications Medications: Current Medications Alprazolam (Xanax) 0.25 mg PO BID PRN; Protocol PRN Reason: Anxiety Last Admin: 07/09/18 21:35 Dose: 0.25 mg Diphenhydramine HCl (Benadryl) 25 mg PO HS PRN PRN Reason: Insomnia Last Admin: 07/09/18 22:19 Dose: 25 mg Dextrose/Sodium Chloride (Dextrose 5%/0.9% Ns 1000 Ml) 1,000 mls @ 100 mls/hr IV .Q10H REINALDO Last Admin: 07/09/18 13:44 Dose: 100 mls/hr Piperacillin Sod/Tazobactam Sod (Zosyn 3.375 In Ns 100ml) 100 mls @ 25 mls/hr IVPB Q8 REINALDO; Protocol Stop: 07/15/18 07:16 Last Admin: 07/10/18 05:24 Dose: 25 mls/hr Lorazepam (Ativan) 0.5 mg PO HS REINALDO; Protocol Last Admin: 07/09/18 21:35 Dose: 0.5 mg Ondansetron HCl (Zofran Inj) 4 mg IVP Q6H PRN PRN Reason: Nausea/Vomiting Last Admin: 07/08/18 16:19 Dose: 4 mg Pantoprazole Sodium (Protonix Ec Tab) 40 mg PO 0600 REINALDO Last Admin: 07/10/18 05:23 Dose: 40 mg - Labs Labs: 07/09/18 05:30 07/09/18 05:30 PT 12.2 SECONDS (9.4-12.5) 07/07/18 09:42 INR 1.06 07/07/18 09:42 APTT 31.6 Seconds (25.1-36.5) 07/07/18 09:42
[2018-07-10 12:55] LABS: URINE BILIRUBIN NEGATIVE (NEGATIVE); URINE BLOOD SMALL (NEGATIVE); URINE GLUCOSE (UA) NEGATIVE (NEGATIVE); URINE LEUKOCYTE ESTERASE NEGATIVE Leu/uL (NEGATIVE); URINE PROTEIN NEGATIVE mg/dL (<30 mg/dL); URINE UROBILINOGEN 0.2 E.U./dL (<1 E.U./dL)
[2018-07-10 12:56] LABS: URINE APPEARANCE CLEAR (CLEAR); URINE COLOR YELLOW (YELLOW)
[2018-07-10 13:06] LABS: URINE BACTERIA FEW (NEG); URINE RBC 0 - 2 /hpf (0-2); URINE WBC 0 - 2 /hpf (0-6)
--- NOTE | 2018-07-10 13:44 | CP.PCM.PN ---
<Eden Spaulding - Last Filed: 07/10/18 13:41> Subjective - Date & Time of Evaluation Date of Evaluation: 07/10/18 Time of Evaluation: 13:41 - Subjective Subjective: Gastroenterology Fellow PGY6 Progress Note Patient notes unchanged watery/ liquid stools with intermittent incontinence. Tolerating regular diet. A 12-point review of systems negative except for as above. Objective - Vital Signs/Intake and Output Vital Signs (last 24 hours): Temp Pulse Resp BP Pulse Ox 98.5 F 84 19 103/66 98 07/10/18 08:30 07/10/18 08:30 07/10/18 08:30 07/10/18 08:30 07/10/18 08:30 Intake and Output: 07/10/18 07/10/18 06:59 18:59 Intake Total 1320 Balance 1320 - Medications Medications: Current Medications Alprazolam (Xanax) 0.25 mg PO BID PRN; Protocol PRN Reason: Anxiety Last Admin: 07/09/18 21:35 Dose: 0.25 mg Diphenhydramine HCl (Benadryl) 25 mg PO HS PRN PRN Reason: Insomnia Last Admin: 07/09/18 22:19 Dose: 25 mg Dextrose/Sodium Chloride (Dextrose 5%/0.9% Ns 1000 Ml) 1,000 mls @ 100 mls/hr IV .Q10H REINALDO Last Admin: 07/09/18 13:44 Dose: 100 mls/hr Piperacillin Sod/Tazobactam Sod (Zosyn 3.375 In Ns 100ml) 100 mls @ 25 mls/hr IVPB Q8 REINALDO; Protocol Stop: 07/15/18 07:16 Last Admin: 07/10/18 05:24 Dose: 25 mls/hr Lorazepam (Ativan) 0.5 mg PO HS REINALDO; Protocol Last Admin: 07/09/18 21:35 Dose: 0.5 mg Ondansetron HCl (Zofran Inj) 4 mg IVP Q6H PRN PRN Reason: Nausea/Vomiting Last Admin: 07/08/18 16:19 Dose: 4 mg Pantoprazole Sodium (Protonix Ec Tab) 40 mg PO 0600 REINALDO Last Admin: 07/10/18 05:23 Dose: 40 mg - Labs Labs: 07/09/18 05:30 07/09/18 05:30 PT 12.2 SECONDS (9.4-12.5) 07/07/18 09:42 INR 1.06 07/07/18 09:42 APTT 31.6 Seconds (25.1-36.5) 07/07/18 09:42 - Constitutional Appears: Non-toxic, No Acute Distress - Head Exam Head Exam: ATRAUMATIC, NORMOCEPHALIC - Eye Exam Eye Exam: EOMI, PERRL. absent: Scleral icterus Pupil Exam: PERRL. absent: Miosis, Mydriatic - ENT Exam ENT Exam: Mucous Membranes Moist, Normal Oropharynx - Neck Exam Neck Exam: Full ROM, Normal Inspection - Respiratory Exam Respiratory Exam: Clear to Ausculation Bilateral. absent: Rales, Rhonchi, Wheezes - Cardiovascular Exam Cardiovascular Exam: RRR, +S1, +S2. absent: Gallop, Rubs - GI/Abdominal Exam GI & Abdominal Exam: Soft, Normal Bowel Sounds. absent: Distended, Firm, Guarding, Rigid, Tenderness, Organomegaly, Rebound - Extremities Exam Extremities Exam: Normal Inspection. absent: Pedal Edema - Neurological Exam Neurological Exam: Alert, Awake - Psychiatric Exam Psychiatric exam: Normal Affect, Normal Mood - Skin Skin Exam: Dry, Intact, Normal Color, Warm Assessment and Plan - Assessment and Plan (Free Text) Assessment: 47 year old female with PMH of rectal carcinoma 2013 s/p chemoradiation, ileosto my, loop colostomy with reversal complicated by residual sigmoid stricture requiring multiple dilations (Dr. Meek at [facility]) presenting with increased stool leakage and constipation. Active treatment of constipation with overflow diarrhea in setting of recent dilation one week prior to admission. MRI Abdomen/Pelvis without abscess collection. Plan: -counselled patient on follow up with Dr. Meek to re-assess stool leakage after recent sigmoid stricture dilation for further recommendations -tolerating diet -continue bowel regimen -advance diet as tolerated -concern for fecal colonization of urine sample from 07/07 -repeat U/A and urine culture ordered -ID managing- follow up recommendations -urology consulted for B/L hydronephrosis -will follow clinical course <Nessa Pederson V - Last Filed: 07/10/18 23:51> Objective - Vital Signs/Intake and Output Vital Signs (last 24 hours): Temp Pulse Resp BP Pulse Ox 98.1 F 82 16 109/67 98 07/10/18 23:07 07/10/18 23:07 07/10/18 23:07 07/10/18 23:07 07/10/18 23:07 Intake and Output: 07/10/18 07/11/18 18:59 06:59 Intake Total 1320 520 Balance 1320 520 - Medications Medications: Current Medications Alprazolam (Xanax) 0.25 mg PO BID PRN; Protocol PRN Reason: Anxiety Last Admin: 07/09/18 21:35 Dose: 0.25 mg Diphenhydramine HCl (Benadryl) 25 mg PO HS PRN PRN Reason: Insomnia Last Admin: 07/09/18 22:19 Dose: 25 mg Dextrose/Sodium Chloride (Dextrose 5%/0.9% Ns 1000 Ml) 1,000 mls @ 100 mls/hr IV .Q10H REINALDO Last Admin: 07/09/18 13:44 Dose: 100 mls/hr Meropenem (Merrem Iv 1 Gm Premix) 1 gm in 50 mls @ 12.5 mls/hr IVPB Q8 REINALDO; Protocol Stop: 07/19/18 18:06 Last Admin: 07/10/18 22:23 Dose: 12.5 mls/hr Lactobacillus Acidophilus (Bacid Acidophilus) 2 cap PO TID REINALDO Lorazepam (Ativan) 0.5 mg PO HS REINALDO; Protocol Last Admin: 07/10/18 22:21 Dose: 0.5 mg Ondansetron HCl (Zofran Inj) 4 mg IVP Q6H PRN PRN Reason: Nausea/Vomiting Last Admin: 07/08/18 16:19 Dose: 4 mg Pantoprazole Sodium (Protonix Ec Tab) 40 mg PO 0600 REINALDO Last Admin: 07/10/18 05:23 Dose: 40 mg - Labs Labs: 07/09/18 05:30 07/09/18 05:30 PT 12.2 SECONDS (9.4-12.5) 07/07/18 09:42 INR 1.06 07/07/18 09:42 APTT 31.6 Seconds (25.1-36.5) 07/07/18 09:42 Attending/Attestation - Attestation I have personally seen and examined this patient.: Yes I have fully participated in the care of the patient.: Yes I have reviewed all pertinent clinical information, including history, physical exam and plan: Yes Notes (Text): This is an addendum to GI progress report dictated by the GI Fellow.The patient was seen and examined earlier. Medical records, lab studies, imagings were reviewed. Last 24 hours events reviewed. Agreed with the above treatment plan as outlined in GI Fellow 's notes with the addition of the following 07/10/18 23:51
--- NOTE | 2018-07-10 14:35 | US ---
Date of service: 07/10/2018 PROCEDURE: Ultrasound of the Kidneys HISTORY: post void renal u/s to evaluate hydronephrosis COMPARISON: None available. TECHNIQUE: Sonogram of the kidneys. FINDINGS: RIGHT KIDNEY: Measures: 10 x 4 x 3.4 x 5.8 cm. Normal in size, contour and echogenicity. No stone, solid mass lesion or hydronephrosis visualized. LEFT KIDNEY: Measures: 11.8 x 6.5 x 6.5 cm. Normal in size, contour and echogenicity. No stone, solid mass lesion or hydronephrosis visualized. OTHER FINDINGS: None. IMPRESSION: Unremarkable renal sonogram.
[2018-07-10] MEDS ORDERED: Lidocaine 2% Jelly (Uro-Jet) ONE (15:21)
[2018-07-10] MEDS: Meropenem IV 1 gm in NS 1 GM/50 ML BAG IVPB SCH ×2 (18:49→22:23)
[2018-07-10] MEDS ORDERED: Lactobacillus Acidophilus 500 MU Cap PO STA (20:01)
--- NOTE | 2018-07-10 21:08 | OP ---
PROCEDURE DATE: 07/10/2018 INDICATION FOR PROCEDURE: Ms. Frankel is a 47-year-old female with history of colon cancer, status post multiple colonic resections with residual disease requiring chemotherapy and radiation therapy. She is admitted to [facility] with myriad of medical problems related to these procedures. I was consulted emergently after the patient presented to the emergency room with complaints of bilateral back pain and blood in the urine. CT scan performed demonstrated bilateral hydronephrosis that might be the probable cause, not a clearly identifiable cause and her UA as mentioned, demonstrated blood in the urine. Additionally, the patient had a culture, which grew up an ESBL E. coli and in this setting, I was consulted emergently to consult in the care for the patient. Given this conglomerated findings, I decided to take the patient to the operating room for a cystoscopy on an emergent basis to evaluate for any urinary tract pathologies. PREOPERATIVE DIAGNOSES: Hematuria, extended-spectrum beta-lactamase urinary tract infection, bilateral hydronephrosis. POSTOPERATIVE DIAGNOSES: Hematuria, extended-spectrum beta-lactamase urinary tract infection, bilateral hydronephrosis, plus urethral stricture. PROCEDURE: Cystoscopy, dilation of urethra. SURGEON: Que Robledo M.D. ESTIMATED BLOOD LOSS: Minimal. TYPE OF ANESTHESIA: Local. COMPLICATIONS: This is a clean contaminated case. OPERATIVE DETAILS: Patient was brought to the operative room, placed in supine position. The patient was then placed in a frog-leg position, prepped and draped in usual sterile fashion. Time-out was called verifying patient name, the procedure, antibiotics, and allergies. Then, Lidoject lidocaine jelly was applied to the urethra. I attempted to pass a flexible cystoscope per the urethra to perform cystoscopy and encountered some difficulty from urethral meatal stenosis. I dilated the urethra and then was able to pass the scope. Once inside the bladder, performed a formal cystoscopy, identifying both ureteral orifices to be in the orthotopic position. No bladder tumors were identified. No bladder diverticula were identified. No fistula tracts were identified. The bladder mucosa appeared to be devoid of any mucosal irritation or lesions. I retroflexed the scope and looked to the bladder neck, which also appeared to be normal. There was some bulging from the posterior inferior wall of the bladder consistent with perhaps bowel impinging extrinsically on the bladder, however, the internal portion of the bladder appeared unremarkable. At this point, I emptied the patient's bladder, withdrew the scope, and at this point concluded the case. Que Robledo M.D.
--- NOTE | 2018-07-10 23:44 | PN ---
DATE: 07/10/2018 SUBJECTIVE: Patient seen earlier today in room 373, bed 1. She is awake and alert, and she did have a fever earlier. PHYSICAL EXAMINATION VITAL SIGNS: Temperature is 100.6, blood pressure is 120/70, respiratory rate of 18. HEENT: Unremarkable. NECK: Supple. LUNGS: Have decreased breath sounds. HEART: Normal S1, S2. ABDOMEN: Soft. LABORATORY DATA: Reveals the patient's white count is 4.8, hemoglobin of 11. Chemistry reveals BUN of 5, creatinine of 0.9. Urinalysis is significant for 0-2 wbc's, few bacteria, large leukocyte esterase, large blood. Microbiology reveals the patient's blood cultures are negative. The urine culture has E. coli ESBL. REVIEW OF ORDERS: Reveals the patient to be on Zosyn. Patient was on ceftriaxone. ASSESSMENT AND PLAN: A 47-year-old female who was still complaining of loose bowel movements; however, she is still having incontinence who was admitted with fever, hematuria, tachycardia. Sepsis with extended-spectrum beta-lactamase Escherichia coli urinary tract infection and cystitis and with mild hydronephrosis and hydroureter. Patient is for cystoscopy today, and we will start meropenem, stop the Zosyn. We will follow closely with you. Kartik Young MD
[2018-07-11] MEDS: Dextrose 5%/0.9% NS 1,000 ML IV SCH ×2 (06:09→13:52)
[2018-07-11] MEDS: Pantoprazole 40 mg EC Tab PO SCH (06:10)
[2018-07-11 08:49] LABS: BASO # 0.02 K/mm3 (0.0-2.0); BASO % 0.5 % (0.0-3.0); EOS # 0.1 (0.0-0.7); EOS % 1.2 % (1.5-5.0); GRAN # 2.87 (1.4-6.5); GRAN % 69.5 % (50.0-68.0); HEMOGLOBIN 11.3 g/dL (12.0-16.0); LYMPH # 0.8 (1.2-3.4); LYMPH % 18.6 % (22.0-35.0); MEAN CELL VOLUME 93.1 fl (80.0-105.0); MEAN CORPUSCULAR HEMOGLOBIN 29.9 pg (25.0-35.0); MEAN CORPUSCULAR HGB CONC 32.1 g/dl (31.0-37.0); MEAN PLATELET VOLUME 9.1 fl (7.0-11.0); MONO # 0.4 (0.1-0.6); MONO % 10.2 % (1.0-6.0); RBC 3.78 10^6/uL (3.5-6.1); RED CELL DISTRIBUTION WIDTH 13.6 % (11.5-14.5); WHITE BLOOD COUNT 4.1 10^3/uL (4.5-11.0)
[2018-07-11 09:04] LABS: ALB/GLOB RATIO 1.1 (1.1-1.8); ALBUMIN 3.8 g/dL (3.0-4.8); ALT/SGPT 20 U/L (7-56); AST/SGOT 17 U/L (14-36); BLOOD UREA NITROGEN 5 mg/dL (7-21); CALCIUM 8.9 mg/dL (8.4-10.5); GFR NON-AFRICAN AMERICAN > 60
[2018-07-11] MEDS: Lactobacillus Acidophilus 500 MU Cap PO SCH ×3 (09:55→18:52)
[2018-07-11] MEDS ORDERED: Lactobacillus Acidophilus 500 MU Cap PO SCH (10:00)
--- NOTE | 2018-07-11 14:24 | CP.PCM.DIS ---
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 Meek in patient setting (3) Constipation Status: Resolved Priority: Medium (4) Hydronephrosis Status: Chronic Priority: Medium Hospital Course - Lab Results Lab Results: Micro Results 07/10/18 12:30 Urine Urine Culture - Final No Growth (<1,000 CFU/ML) 07/07/18 09:42 Blood Blood Culture - Preliminary NO GROWTH AFTER 4 DAYS 07/07/18 09:30 Blood Blood Culture - Preliminary NO GROWTH AFTER 4 DAYS 07/07/18 09:15 Urine Urine Culture - Final Escherichia Coli Most Recent Lab Values WBC 4.1 10^3/uL (4.5-11.0) L 07/11/18 08:40 RBC 3.78 10^6/uL (3.5-6.1) 07/11/18 08:40 Hgb 11.3 g/dL (12.0-16.0) L 07/11/18 08:40 Hct 35.2 % (36.0-48.0) L 07/11/18 08:40 MCV 93.1 fl (80.0-105.0) 07/11/18 08:40 MCH 29.9 pg (25.0-35.0) 07/11/18 08:40 MCHC 32.1 g/dl (31.0-37.0) 07/11/18 08:40 RDW 13.6 % (11.5-14.5) 07/11/18 08:40 Plt Count 283 10^3/uL (120.0-450.0) 07/11/18 08:40 MPV 9.1 fl (7.0-11.0) 07/11/18 08:40 Gran % 69.5 % (50.0-68.0) H 07/11/18 08:40 Lymph % (Auto) 18.6 % (22.0-35.0) L 07/11/18 08:40 [place] % (Auto) 10.2 % (1.0-6.0) H 07/11/18 08:40 Eos % (Auto) 1.2 % (1.5-5.0) L 07/11/18 08:40 Baso % (Auto) 0.5 % (0.0-3.0) 07/11/18 08:40 Gran # 2.87 (1.4-6.5) 07/11/18 08:40 Lymph # (Auto) 0.8 (1.2-3.4) L 07/11/18 08:40 Wells # (Auto) 0.4 (0.1-0.6) 07/11/18 08:40 Eos # (Auto) 0.1 (0.0-0.7) 07/11/18 08:40 Baso # (Auto) 0.02 K/mm3 (0.0-2.0) 07/11/18 08:40 PT 12.2 SECONDS (9.4-12.5) 07/07/18 09:42 INR 1.06 07/07/18 09:42 APTT 31.6 Seconds (25.1-36.5) 07/07/18 09:42 Sodium 143 mmol/L (132-148) 07/11/18 08:40 Potassium 4.1 mmol/L (3.6-5.0) 07/11/18 08:40 Chloride 109 mmol/L (98-107) H 07/11/18 08:40 Carbon Dioxide 28 mmol/L (21-33) 07/11/18 08:40 Anion Gap 10 (10-20) 07/11/18 08:40 BUN 5 mg/dL (7-21) L 07/11/18 08:40 Creatinine 0.8 mg/dl (0.7-1.2) 07/11/18 08:40 Est GFR ( Amer) > 60 07/11/18 08:40 Est GFR (Non-Af Amer) > 60 07/11/18 08:40 Random Glucose 108 mg/dL (70-110) 07/11/18 08:40 Calcium 8.9 mg/dL (8.4-10.5) 07/11/18 08:40 Phosphorus 4.0 mg/dL (2.5-4.5) 07/09/18 05:30 Magnesium 2.1 mg/dL (1.7-2.2) 07/09/18 05:30 Total Bilirubin 0.3 mg/dL (0.2-1.3) 07/11/18 08:40 AST 17 U/L (14-36) 07/11/18 08:40 ALT 20 U/L (7-56) 07/11/18 08:40 Alkaline Phosphatase 46 U/L (38-126) 07/11/18 08:40 Total Protein 7.2 g/dL (5.8-8.3) 07/11/18 08:40 Albumin 3.8 g/dL (3.0-4.8) 07/11/18 08:40 Globulin 3.4 gm/dL 07/11/18 08:40 Albumin/Globulin Ratio 1.1 (1.1-1.8) 07/11/18 08:40 Amylase 68 U/L (35-125) 07/07/18 09:42 Lipase 65 U/L (23-300) 07/07/18 09:42 Procalcitonin < 0.05 NG/ML (0.19-0.49) L 07/07/18 09:42 Urine Color Yellow (YELLOW) 07/10/18 12:30 Urine Appearance Clear (CLEAR) 07/10/18 12:30 Urine pH 6.0 (4.7-8.0) 07/10/18 12:30 Ur Specific [place] 1.025 (1.005-1.035) 07/10/18 12:30 Urine Protein Negative mg/dL (<30 mg/dL) 07/10/18 12:30 Urine Glucose (UA) Negative mg/dL (NEGATIVE) 07/10/18 12:30 Urine Ketones Negative mg/dL (NEGATIVE) 07/10/18 12:30 Urine Blood Small (NEGATIVE) H 07/10/18 12:30 Urine Nitrate Negative (NEGATIVE) 07/10/18 12:30 Urine Bilirubin Negative (NEGATIVE) 07/10/18 12:30 Urine Urobilinogen 0.2 E.U./dL (<1 E.U./dL) 07/10/18 12:30 Ur Leukocyte Esterase Negative Felicia/uL (NEGATIVE) 07/10/18 12:30 Urine RBC 0 - 2 /hpf (0-2) 07/10/18 12:30 Urine WBC 0 - 2 /hpf (0-6) 07/10/18 12:30 Ur Epithelial Cells 3 - 4 /hpf (0-5) 07/10/18 12:30 Urine Bacteria Few (NEG) 07/10/18 12:30 - Hospital Course Hospital Course: Patient is a 47year old female with a PMHx of rectal carcinoma 2013 s/p chemoradiation, ileostomy, loop colostomy with reversal complicated by residual sigmoid stricture requiring multiple dilations (Dr. Meek at [facility]) who was admitted for evaluation and treatment of stool leakage and constipation. With the use of physical examinations, lab work, and imaging the patient was diagnosed with and treated for constipation, hydronephrosis, and questionable abdominal wall infection/UTI. During their hospital stay the patient was seen by gastroenterology (Dr. Pederson), nephrology (Dr. Tim), and infectious disease (Dr. Davidson) whose recommendations were reviewed, appreciated, and implemented in the patients care. During their hospital stay the patient underwent CT Abdomen and Pelvis without IV contrast, Pelvis MRI pelvis with and without contrast, Abdominal MRI, renal ultrasound, and a cystoscopy which were reviewed, appreciated, and utilized in the management of the patients clinical course. The CT Abdomen and Pelvis without IV contrast showed an indeterminate large prominent presacral soft tissue, collapse bowel loop, a small amount of high density as well as foci of air may in fact be intraluminal, abscess was not excluded, mild hydronephrosis/hydroureter bilaterally without obstructing calculus identified, a small hypodensity re-identified within the right hepatic lobe adjacent to the falciform ligament cyst ( possibly focal fatty infiltration), and moderate diffuse constipation. The pelvis MRI pelvis with and without contrast showed postoperative changes in the presacral space and no evidence of abscess. The abdomen MRI was unremarkable. The renal ultrasound was also unremarkable. The patient underwent a cystoscopy with urethral dilation which revealed bilateral hydronephrosis and urethral stricture. Patient was treated with bowel regimens, IV antibiotics (meropenem), amongst other empiric and therapeutic medications. At this time the patient is medically stable for discharge. Patient understands and appreciates discharge plan. Patient instructed to follow up with primary care physicians and referrals within one week from discharge. Furthermore the patient is instructed to take medications as prescribed and to return to the emergency room for evaluation of new or worsening symptoms including but limited to dizziness, headache, visual/auditory changes, fever, chills, chest pain, SOB, abdominal pain, nausea, vomiting, diarrhea, constipation, and urinary symptoms. This is a brief summary of the patient hospital course. Please see patient chart for full details. Discharge Exam - Additional Findings Additional findings: - Constitutional Appears: Non-toxic, No Acute Distress - Head Exam Head Exam: ATRAUMATIC, NORMOCEPHALIC - Eye Exam Eye Exam: EOMI, PERRL. absent: Scleral icterus - ENT Exam ENT Exam: Mucous Membranes Moist, Normal Oropharynx - Neck Exam Neck Exam: Full ROM, Normal Inspection - Respiratory Exam Respiratory Exam: Clear to Ausculation Bilateral. absent: Rales, Rhonchi, Wheezes - Cardiovascular Exam Cardiovascular Exam: RRR, +S1, +S2. absent: Gallop, Rubs - GI/Abdominal Exam GI & Abdominal Exam: Soft, Normal Bowel Sounds. absent: Distended, Firm, Guarding, Rigid, Tenderness, Organomegaly, Rebound - Extremities Exam Extremities Exam: Normal Inspection. absent: Pedal Edema - Neurological Exam Neurological Exam: Alert, Awake - Psychiatric Exam Psychiatric exam: Normal Affect, Normal Mood - Skin Skin Exam: Dry, Intact, Normal Color, Warm Discharge Plan - Follow Up Plan Condition: STABLE Disposition: HOME/ ROUTINE Instructions: Urinary Tract Infection, Adult (DC), Rectovaginal Fistula, Extended-Spectrum Beta Lactamase Infection Additional Instructions: 1. Please see primary care physician and referrals within 3-5 days from discharge. 2. Follow up with Dr. Meek for gastrograffin enema for further evaluation of potential recto-vaginal fistula 3. Please take fosfomycin 3 gram orally one time 4. Please follow up with gyncecologist for speculum exam 5. Please return to emergency room for evaluation of new or worsening symptoms including but limited to dizziness, headache, visual/auditory changes, fever, chills, chest pain, SOB, abdominal pain, nausea, vomiting, diarrhea, constipation, and urinary symptoms. Referrals: Que Robledo MD [Staff Provider] - Eloina Meek MD [Medical Doctor] - Nessa Pederson MD [Medical Doctor] -
[2018-07-11] MEDS: Meropenem IV 1 gm in NS 1 GM/50 ML BAG IVPB SCH (14:25)
--- NOTE | 2018-07-11 15:59 | CP.PCM.PN ---
<Eden Spaulding - Last Filed: 07/11/18 15:54> Subjective - Date & Time of Evaluation Date of Evaluation: 07/11/18 Time of Evaluation: 15:54 - Subjective Subjective: Gastroenterology Fellow PGY6 Progress Note Patient notes soft stool bowel movements with continued intermittent incontinence. Tolerating regular diet. A 12-point review of systems negative except for as above. Objective - Vital Signs/Intake and Output Vital Signs (last 24 hours): Temp Pulse Resp BP Pulse Ox 98.4 F 70 100 H 104/70 98 07/11/18 06:00 07/11/18 06:00 07/11/18 06:00 07/11/18 06:00 07/10/18 23:07 Intake and Output: 07/11/18 07/11/18 06:59 18:59 Intake Total 1960 Balance 1960 - Medications Medications: Current Medications Alprazolam (Xanax) 0.25 mg PO BID PRN; Protocol PRN Reason: Anxiety Last Admin: 07/09/18 21:35 Dose: 0.25 mg Diphenhydramine HCl (Benadryl) 25 mg PO HS PRN PRN Reason: Insomnia Last Admin: 07/11/18 02:37 Dose: 25 mg Dextrose/Sodium Chloride (Dextrose 5%/0.9% Ns 1000 Ml) 1,000 mls @ 100 mls/hr IV .Q10H REINALDO Last Admin: 07/11/18 13:52 Dose: 100 mls/hr Meropenem (Merrem Iv 1 Gm Premix) 1 gm in 50 mls @ 12.5 mls/hr IVPB Q8 REINALDO; Protocol Stop: 07/19/18 18:06 Last Admin: 07/11/18 14:25 Dose: 12.5 mls/hr Lactobacillus Acidophilus (Bacid Acidophilus) 2 cap PO TID REINALDO Last Admin: 07/11/18 13:55 Dose: 2 cap Lorazepam (Ativan) 0.5 mg PO HS REINALDO; Protocol Last Admin: 07/10/18 22:21 Dose: 0.5 mg Ondansetron HCl (Zofran Inj) 4 mg IVP Q6H PRN PRN Reason: Nausea/Vomiting Last Admin: 07/08/18 16:19 Dose: 4 mg Pantoprazole Sodium (Protonix Ec Tab) 40 mg PO 0600 REINALDO Last Admin: 07/11/18 06:10 Dose: 40 mg - Labs Labs: 07/11/18 08:40 07/11/18 08:40 PT 12.2 SECONDS (9.4-12.5) 07/07/18 09:42 INR 1.06 07/07/18 09:42 APTT 31.6 Seconds (25.1-36.5) 07/07/18 09:42 - Constitutional Appears: Non-toxic, No Acute Distress - Head Exam Head Exam: ATRAUMATIC, NORMOCEPHALIC - Eye Exam Eye Exam: EOMI, PERRL. absent: Scleral icterus Pupil Exam: PERRL. absent: Miosis, Mydriatic - ENT Exam ENT Exam: Mucous Membranes Moist, Normal Oropharynx - Respiratory Exam Respiratory Exam: Clear to Ausculation Bilateral. absent: Rales, Rhonchi, Wheezes - Cardiovascular Exam Cardiovascular Exam: RRR, +S1, +S2. absent: Gallop, Rubs - GI/Abdominal Exam GI & Abdominal Exam: Soft, Normal Bowel Sounds. absent: Distended, Firm, Guarding, Rigid, Tenderness, Rebound - Rectal Exam Additional comments: soft green stool present - Exam External exam: NORMAL EXTERNAL EXAM. absent: Erythema, Lacerations, Lesions Bimanual exam: absent: Cervical Motion Tendernes, Uterine Tenderness Additional comments: smooth vaginal cavity surface, no overt sign of connection between rectum and vaginal cavity, stool present in vaginal cavity on exam - Extremities Exam Extremities Exam: Normal Inspection. absent: Pedal Edema - Neurological Exam Neurological Exam: Alert, Awake - Psychiatric Exam Psychiatric exam: Normal Affect, Normal Mood - Skin Skin Exam: Dry, Intact, Normal Color, Warm Assessment and Plan - Assessment and Plan (Free Text) Assessment: 47 year old female with PMH of rectal carcinoma 2013 s/p chemoradiation, ileostomy, loop colostomy with reversal complicated by residual sigmoid stricture requiring multiple dilations (Dr. Meek at [facility]) presenting with increased stool leakage and constipation. Active treatment of constipation with overflow diarrhea in setting of recent dilation one week prior to admission. MRI Abdomen/Pelvis without abscess collection. Plan: -counselled patient to follow up with Dr. Meek to re-assess stool leakage after recent dilation -bimanual exam with stool present in vaginal cavity -recommend [employer] follow up for full exam with speculum -would benefit from gastrograffin enema for further evaluation of potential recto-vaginal fistula -tolerating diet -continue bowel regimen -follow up Urology and ID recommendations -will follow clinical course <Nessa Pederson V - Last Filed: 07/11/18 21:40> Objective - Vital Signs/Intake and Output Vital Signs (last 24 hours): Temp Pulse Resp BP Pulse Ox 98.5 F 83 18 118/76 100 07/11/18 14:00 07/11/18 14:00 07/11/18 14:00 07/11/18 14:00 07/11/18 14:00 - Medications Medications: Current Medications Alprazolam (Xanax) 0.25 mg PO BID PRN; Protocol PRN Reason: Anxiety Last Admin: 07/09/18 21:35 Dose: 0.25 mg Diphenhydramine HCl (Benadryl) 25 mg PO HS PRN PRN Reason: Insomnia Last Admin: 07/11/18 02:37 Dose: 25 mg Dextrose/Sodium Chloride (Dextrose 5%/0.9% Ns 1000 Ml) 1,000 mls @ 100 mls/hr IV .Q10H REINALDO Last Admin: 07/11/18 13:52 Dose: 100 mls/hr Meropenem (Merrem Iv 1 Gm Premix) 1 gm in 50 mls @ 12.5 mls/hr IVPB Q8 REINALDO; Protocol Stop: 07/19/18 18:06 Last Admin: 07/11/18 14:25 Dose: 12.5 mls/hr Lactobacillus Acidophilus (Bacid Acidophilus) 2 cap PO TID REINALDO Last Admin: 07/11/18 18:52 Dose: 2 cap Lorazepam (Ativan) 0.5 mg PO HS REINALDO; Protocol Last Admin: 07/10/18 22:21 Dose: 0.5 mg Ondansetron HCl (Zofran Inj) 4 mg IVP Q6H PRN PRN Reason: Nausea/Vomiting Last Admin: 07/08/18 16:19 Dose: 4 mg Pantoprazole Sodium (Protonix Ec Tab) 40 mg PO 0600 REINALDO Last Admin: 07/11/18 06:10 Dose: 40 mg - Labs Labs: 07/11/18 08:40 07/11/18 08:40 PT 12.2 SECONDS (9.4-12.5) 07/07/18 09:42 INR 1.06 07/07/18 09:42 APTT 31.6 Seconds (25.1-36.5) 07/07/18 09:42 Attending/Attestation - Attestation I have personally seen and examined this patient.: Yes I have fully participated in the care of the patient.: Yes I have reviewed all pertinent clinical information, including history, physical exam and plan: Yes Notes (Text): This is an addendum to GI progress report dictated by the GI Fellow.The patient was seen and examined earlier. Medical records, lab studies, imagings were reviewed. Last 24 hours events reviewed. Agreed with the above treatment plan as outlined in GI Fellow 's notes with the addition of the following 07/11/18 21:40
[2018-07-11 16:10] VITALS: BP 118/76; PULSE 83; RESP 18; TEMP 98.5; O2SAT 100
--- NOTE | 2018-07-12 02:53 | PN ---
DATE: 07/11/2018 SUBJECTIVE: The patient is in bed, in no acute distress, nontoxic. PHYSICAL EXAMINATION VITAL SIGNS: Temperature is 98, blood pressure is 118/70, respiratory rate of 18. HEENT: Unremarkable. NECK: Supple. LUNGS: Decreased breath sounds. HEART: Normal S1 and S2. ABDOMEN: Soft. LABORATORY EXAMINATION: Reveals a white count of 4.1, hemoglobin of 11. Chemistries are noted. Urinalysis is unremarkable. Microbiology reveals the repeat urine cultures negative and blood cultures are negative. Review of orders reveals the patient to be on meropenem. ASSESSMENT AND PLAN: A 47-year-old female was seen early this morning, still with diarrhea and sepsis with extended-spectrum beta-lactamase Escherichia coli urinary tract infection and cystitis, mild hydronephrosis and hydroureter, on meropenem day #2, may be able to use p.o. fosfomycin 3 g for an uncomplicated urinary tract infection x1 pill, may use x3 days if this is a complicated urinary tract infection. Kartik Young MD
== END 2018-07-11 21:50 | disposition home or self-care (01) | DRG 690 ==
LOC: ED 07:51 → ERH 13:22 → 3RSO 14:46 → 5RSO 07-10 11:23
PROVIDERS: ADMIT Family Medicine; ATTEND Family Medicine
PROC: 0T7D8ZZ Dilation of Urethra, Via Natural or Artificial Opening Endoscopic (ICD-10-PCS; principal; 2018-07-10 14:30)
DX: N30.91 Cystitis, unspecified with hematuria (principal); N13.30 Unspecified hydronephrosis; N35.92 Unspecified urethral stricture, female; E86.0 Dehydration; Z16.12 Extended spectrum beta lactamase (ESBL) resistance; B96.20 Unspecified Escherichia coli [E. coli] as the cause of diseases classified elsewhere; K59.00 Constipation, unspecified; Z93.3 Colostomy status; Z85.048 Personal history of other malignant neoplasm of rectum, rectosigmoid junction, and anus